=== PATIENT | female | born 1970 | race Caucasian/White ===

== ENCOUNTER → 2023-05-01 | Day surgery (SDC) | payer OTHER ==
[~2023-05-01] MED LIST: Dextrose 5%-0.45% NaCl 1,000 ML IV SCH; Metoprolol Tartrate 5 MG/5 ML SDV ONE; Midazolam 1 MG/ML 2 ML SDV IV ONE; Midazolam 1 MG/ML 2 ML SDV ONE; diphenhydrAMINE 50 MG/ML SDV ONE; fentaNYL 100 MCG/2 ML SDV IV ONE; fentaNYL 100 MCG/2 ML SDV ONE
== END | disposition home or self-care (01) ==
LOC: DL.ENDO 05:26
PROVIDERS: ATTEND Internal Medicine Gastroenterology
DX: K29.50 Unspecified chronic gastritis without bleeding (principal); K21.00 Gastro-esophageal reflux disease with esophagitis, without bleeding; K44.9 Diaphragmatic hernia without obstruction or gangrene; K31.7 Polyp of stomach and duodenum; R13.10 Dysphagia, unspecified; E78.00 Pure hypercholesterolemia, unspecified; I10 Essential (primary) hypertension; E66.09 Other obesity due to excess calories; Z80.0 Family history of malignant neoplasm of digestive organs; Z90.710 Acquired absence of both cervix and uterus; Z68.41 Body mass index [BMI] 40.0-44.9, adult
CPT/HCPCS: 43239; 43450; 87077; J2250; J3010; J7042

== ENCOUNTER 2023-05-23 06:28 | Day surgery (SDC) | payer OTHER ==
[2023-05-23] MEDS ORDERED: fentaNYL 100 MCG/2 ML SDV IV ONE (06:29)
[2023-05-23] MEDS ORDERED: Midazolam 1 MG/ML 2 ML SDV IV ONE (06:29)
[2023-05-23] MEDS ORDERED: fentaNYL 100 MCG/2 ML SDV ONE (07:02)
[2023-05-23] MEDS ORDERED: Midazolam 1 MG/ML 2 ML SDV ONE (07:02)
[2023-05-23] MEDS: Dextrose 5%-0.45% NaCl 1,000 ML IV SCH (07:05)
[2023-05-23] MEDS: fentaNYL 100 MCG/2 ML SDV IV ONE ×3 (07:20→07:30)
[2023-05-23] MEDS: Midazolam 1 MG/ML 2 ML SDV IV ONE ×6 (07:21→07:27)
== END 2023-05-23 08:53 | disposition home or self-care (01) ==
LOC: DL.ENDO 06:28
PROVIDERS: ATTEND Internal Medicine Gastroenterology
DX: Z12.11 Encounter for screening for malignant neoplasm of colon (principal); K57.30 Diverticulosis of large intestine without perforation or abscess without bleeding; I10 Essential (primary) hypertension; K21.9 Gastro-esophageal reflux disease without esophagitis; E78.00 Pure hypercholesterolemia, unspecified; E66.09 Other obesity due to excess calories; Z68.41 Body mass index [BMI] 40.0-44.9, adult
CPT/HCPCS: 45378; J2250; J3010; J7042